=== PATIENT | female | born 1970 | race African-American/Black ===

== ENCOUNTER 2019-04-24 23:07 | Emergency (ER) | payer MEDICAID ==
[~2019-04-24] VITALS: Ht 170.2 cm; Wt 104.3 kg
[2019-04-24 23:15] VITALS: BP 171/101
--- NOTE | 2019-04-24 23:31 | NUR ---
48 YO F BIB SELF PRESENTS TO ED C/O KETONES IN HER URINE, LEFT MIDDLE BACK PAIN, AND URINARY FREQUENCY. PT REPORTS HX OF DMII AND CHECKED HER URINE FOR KETONES TODAY. SHE ALSO STATES SHE HAS BEEN NEEDING TO URINATE ABOUT TWICE AN HOUR X 1 DAY. PT STATES BACK PAIN STARTED AROUND 2100. BS:[id number]. -- PT IS AWAKE, ALERT. APPEARS CALM. COOPERATIVE, ANSWERING QUESTIONS, BEHAVIOR APPROPRIATE. -- SKIN PINK, WARM, DRY. BREATHING EVEN, UNLABORED. NO S/SX DISTRESS AT THIS TIME. PMH- DMII, SEIZURES. (LAST SEIZURE 1 YEAR AGO. PT TAKES SEIZURE MEDICATION)
--- NOTE | 2019-04-25 00:35 | NUR ---
DR. VAZQUEZ EVALUATING AT BEDSIDE.
[2019-04-25 00:48] VITALS: BP 120/71
--- NOTE | 2019-04-25 00:48 | NUR ---
Patient discharged with v/s stable. Written and verbal after care instructions given and explained. Patient alert, oriented and verbalized understanding of instructions. Ambulatory with steady gait. All questions addressed prior to discharge. ID band removed. Patient advised to follow up with PMD. Rx of DIFLUCAN given. Patient educated on indication of medication including possible reaction and side effects. Opportunity to ask questions provided and answered.
== END 2019-04-25 00:48 | disposition home or self-care (01) ==
LOC: MED 23:07
DX: R35.0 Frequency of micturition (principal); B37.9 Candidiasis, unspecified; E11.9 Type 2 diabetes mellitus without complications; Z88.0 Allergy status to penicillin; Z86.73 Personal history of transient ischemic attack (TIA), and cerebral infarction without residual deficits
CPT/HCPCS: 81002; 81025; 99283